=== PATIENT | male | born 1950 | race Caucasian/White ===

== ENCOUNTER → 2024-08-07 10:03 | Outpatient (REF) | payer MEDICARE, OTHER, SELFPAY ==
[2024-08-07 11:16] LABS: % Basophils 1.2 % (0-2); % Eosinophils 7.8 % (0-6); % Immature Granulocytes 0.1 % (0-0.5); % Lymphocytes 29.4 % (20.5-51.1); % Monocytes 8.6 % (1.7-9.3); % Neutrophils 52.9 % (42.2-75.2); Absolute Basophils 0.1 10^3/uL (0-0.2); Absolute Eosinophils 0.6 10^3/uL (0-0.7); Absolute Lymphocytes 2.4 10^3/uL (1.2-3.4); Absolute Monocytes 0.7 10^3/uL (0.1-0.6); Absolute Neutrophils 4.4 10^3/uL (1.4-6.5); Hematocrit 41.2 % (39.0-52.0); Hemoglobin 14.2 g/dL (13.0-18.0); Mean Corp Hgb Conc. 34.5 g/dL (33.0-37.0); Mean Corpuscular Hgb 30.6 pg (27.0-31.0); Mean Corpuscular Volume 88.8 fL (80.0-94.0); Nucleated Red Blood Cells % 0 % (-); Platelet Count 234 10^3/uL (130-400); Red Blood Cell Count 4.64 10^6/uL (4.70-6.10); Red Cell Dist. Width 13.6 % (11.5-14.5); White Blood Cell Count 8.2 10^3/uL (4.8-10.8)
[2024-08-07 11:46] LABS: ALT (SGPT) 37 U/L (0-50); AST (SGOT) 32 U/L (17-59); Albumin 4.8 g/dl (3.5-5.0); Alkaline Phosphatase 107 U/L (38-126); Blood Urea Nitrogen 16 mg/dl (9-20); Calcium 10.3 mg/dl (8.4-10.2); Carbon Dioxide 23 mmol/L (22-30); Chloride 106 mmol/L (98-107); Glucose 132 mg/dl (70-99); Sodium 143 mmol/L (135-145); Total Bilirubin 0.7 mg/dl (0.2-1.3); Total Protein 7.1 g/dl (6.3-8.2); eGFR > 60.00
== END ==
LOC: REG 10:03
PROVIDERS: ATTENDING PHYSICIAN Internal Medicine Cardiovascular Disease
DX: I35.0 Nonrheumatic aortic (valve) stenosis (principal)
CPT/HCPCS: 36415; 80053; 85025

== ENCOUNTER 2024-08-15 08:07 | Day surgery (SDC) | payer MEDICARE, OTHER, SELFPAY ==
[2024-08-15] VITALS (14 sets, daily range): BP systolic 127–168; BP diastolic 47–68; BMI 33.4
--- NOTE | 2024-08-15 09:13 | CONSULT.STRU ---
Consultation
-
Date/Time Consultation Requested: 08/15/2024
Date/Time Consultation Performed: 08/15/2024
Requesting Provider: Fernie Jhaveri MD
Performing Provider: HANSEL Mosquera
Reason for Consultation: / TAVR/SAVR
Patient History
Physicians
Family Physician: Celestine Gonzales DO
Outpatient Last Scourer: Marlon Campbell MD
Primary Last Scourer: Marlon Campbell MD
History of Present Illness
Mr. Damico is a 73 yom that presents with severe aortic stenosis. 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 He does state he
feels tired by the end of the day. Echocardiogram from 06/30/2024 is notable for EF 65-70%, trivial MR, aortic valve P/m 78/51, DAPHNE 0.8, DI 0.25, no AI, pk felix 4.4, trace TR, RVSP 24. His cardiac catheterization shows no CAD, MG 51mmHg. Discussed the
pathophysiology and treatment options of aortic stenosis including SAVR and TAVR. Explained the evaluation process comprising of CT scan, CT surgical consult, dental clearance, and a heart team discussion. TAVR booklet, appointments, prescriptions,
and contact information given to patient. Allowed for and answered questions at bedside.
Past Medical History
Past Medical History: CHRISS (documented in previous medical chart, patient denies CHRISS), Valvular Disease (aortic stenosis) and Other (osteoporosis, SVT, Hyperlipidemia, IgG4, depression)
Past Surgical History
Past Surgical History: Orthopedic (multiple orthopedic surgies) and Other
Dental History
Dr. Ran Stone-UTD-Will fax dental clearance form
Family History
Mother: Cause of (cancer)
Father: Cause of (cancer, heart disease)
Social History
Tobacco: Non-Smoker
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
Allergies
Epinepherine-passes out
Home Medications
amLODIPine Besylate 5 MG Tablet 1 tablet Orally Twice a Day
Atorvastatin Calcium 10 MG Tablet 1 tablet Orally Once a day
Metoprolol Succinate ER 25 MG Tablet Extended Release 24 Hour 1 tablet Orally Twice a Day
STS%
STS %: 1.3
Review of Systems
-
History Source: Patient
General: Reports No Symptoms
HEENT: Reports No Symptoms
Respiratory: Reports No Symptoms
Cardiac: Reports No Symptoms
Abdomen/GI: Reports No Symptoms
: Reports No Symptoms
Musculoskeletal: Reports No Symptoms
Skin: Reports No Symptoms
Neurological: Reports Dizzy (occasional lasting seconds)
Physical Exam
Vital Signs
Temp 98.5 F 08/15/24 08:46
Temp route: Oral 08/15/24 08:46
Pulse 59 08/15/24 08:46
Resp Rate 12 08/15/24 08:46
Blood pressure 168/68 08/15/24 08:46
Blood pressure extremity used: Left upper arm 08/15/24 08:46
Position: Lying 08/15/24 08:46
SaO2 95 08/15/24 08:46
Oxygen Mode of Delivery Room air 08/15/24 08:46
Can the patient verbally communicate their pain? Yes 08/15/24 08:46
Pain scale ratin 08/15/24 08:46
Actual Weight 96.615 kg 08/15/24 07:39
Body Mass Index (BMI) 33.4 08/15/24 07:39
Labs
08/07/2024:
BUN/Creatinine: 16/0.8
GFR>60
HH: 14.2/41.2
Diagnostic Studies
Echocardiogram 06/30/2024:
Aortic Valve
Thickened and deformed aortic valve that exhibits decreased opening. No aortic
insufficiency. Peak aortic valve gradient is 78 mmHg and the mean is 51 mmHg.
The aortic valve area calculated by continuity 0.8 cm2. The dimensionless
velocity index is 0.25. These findings are consistent with severe aortic
stenosis.
CONCLUSIONS
1. Left atrial enlargement.
2. Borderline concentric left ventricular hypertrophy.
3. Severe aortic stenosis.
4. Normal left and right ventricular systolic function.
5. Normal diastolic function.
6. Normal right ventricular systolic pressure
Cardiac Catheterization 08/15/2024:
Exam
General: Well Developed, Well Nourished and No Apparent Distress
HEENT: Normocephalic
Respiratory: Clear
Cardiac: Murmur (II/ ALEYDA)
GI: Soft and Non Tender
Rectal: Deferred by Provider
Skin: Warm
Neuro: Awake, Alert and Oriented
Extremities: Lower Level Edema
Psych: Calm
Assessment / Plan
-
Aortic stenosis
Continue with TAVR/SAVR evaluation
Trend creatinine after contrast
TAVR CT scan (08/31)
CT surgical consult (09/05- )
Frailty testing and KCCQ12 at consult
If TAVR will need to start aspirin
Dental clearance
Heart team discussion
Data Reviewed
-
Academic Support Specialist: Report Reviewed by me and Discussed with Physician
Echo: Report Reviewed by me and Discussed with Physician
Labs: Labs Reviewed by me
Old Records: Reviewed (Dr. Jhaveri and Adrian's OV)
Total Time Spent with Patient (in minutes): 45
[2024-08-15] MEDS: NSS 290 ML IV (09:36)
--- NOTE | 2024-08-15 10:55 | ITS.CL.CATH ---
Game Master - Catheterization
Cardiac Catheterization
Procedure Report:
CARDIAC CATHETERIZATION REPORT
Date of Procedure: 08/15/2024
Referring: Marlon Campbell MD
Indication: Symptomatic severe aortic stenosis
�
HEMODYNAMIC DATA
AO: 126/63
LV: 191/20
There is a mean gradient of 51 mmHg across the aortic valve
�
LEFT VENTRICULOGRAPHY: Not performed
�
CORONARY ANGIOGRAPHY
Dominance: Right
Left Main: Calcified without stenosis
LAD: Mild proximal and mid LAD calcification with mild luminal irregularities but no areas of significant focal stenosis
Circumflex: Trivial luminal irregularities
RCA: Trivial luminal irregularities in a dominant RCA
�
Closure Device: None-the procedure was performed via the right radial artery. The Jamie's test was normal prior to the procedure.
�
Radiation (mGy): 180
DAP (cm2.Gy): 12.2
Fluoroscopy time: 1.2 minutes
�
CONCLUSIONS
1:�Severe aortic stenosis with mean gradient 51 mmHg
2:�No significant CAD
3. Proceed with evaluation for TAVR
�
�
Copy to: Marlon Campbell MD, Celestine Gonzales,
�
Fernie Jhaveri MD, [facility], [facility]
[2024-08-15] MEDS: NSS 1000 IV (11:07)
== END 2024-08-15 14:29 | disposition home or self-care (01) ==
LOC: CATH 08:07
PROVIDERS: ATTENDING PHYSICIAN Internal Medicine Cardiovascular Disease; OTHER PHYSICIAN Internal Medicine Cardiovascular Disease
DX: I35.0 Nonrheumatic aortic (valve) stenosis (principal); R53.83 Other fatigue; I10 Essential (primary) hypertension; E78.5 Hyperlipidemia, unspecified; G47.33 Obstructive sleep apnea (adult) (pediatric); Z79.82 Long term (current) use of aspirin
CPT/HCPCS: 93458; C1894; Q9967

== ENCOUNTER → 2024-08-22 08:58 | Outpatient (REF) | payer MEDICARE, OTHER, SELFPAY ==
[2024-08-22 10:58] LABS: Blood Urea Nitrogen 18 mg/dl (9-20); Calcium 9.5 mg/dl (8.4-10.2); Carbon Dioxide 23 mmol/L (22-30); Chloride 106 mmol/L (98-107); Glucose 126 mg/dl (70-99); Potassium 4.2 mmol/L (3.5-5.1); Sodium 143 mmol/L (135-145); eGFR > 60.00
== END ==
LOC: REG 08:58
PROVIDERS: ATTENDING PHYSICIAN Nurse Practitioner Acute Care
DX: I35.0 Nonrheumatic aortic (valve) stenosis (principal)
CPT/HCPCS: 36415; 80048

== ENCOUNTER → 2024-08-31 09:19 | Outpatient (REF) | payer MEDICARE, OTHER, SELFPAY | LOC: RAD 09:19 | PROVIDERS: ATTENDING PHYSICIAN Nurse Practitioner Acute Care | DX: I35.0 Nonrheumatic aortic (valve) stenosis (principal) | CPT/HCPCS: 74174; 75572; Q9967 ==

== ENCOUNTER 2024-09-21 05:19 | Inpatient (IN) | payer MEDICARE, OTHER, SELFPAY ==
[2024-09-12 12:13] VITALS: BMI 34.9
[2024-09-12 12:52] LABS: % Basophils 0.9 % (0-2); % Eosinophils 9.8 % (0-6); % Immature Granulocytes 0.2 % (0-0.5); % Lymphocytes 29.2 % (20.5-51.1); % Monocytes 9.4 % (1.7-9.3); % Neutrophils 50.5 % (42.2-75.2); Absolute Basophils 0.1 10^3/uL (0-0.2); Absolute Eosinophils 0.8 10^3/uL (0-0.7); Absolute Lymphocytes 2.5 10^3/uL (1.2-3.4); Absolute Monocytes 0.8 10^3/uL (0.1-0.6); Absolute Neutrophils 4.3 10^3/uL (1.4-6.5); Hematocrit 41.6 % (39.0-52.0); Hemoglobin 14.6 g/dL (13.0-18.0); Mean Corp Hgb Conc. 35.1 g/dL (33.0-37.0); Mean Corpuscular Hgb 31.7 pg (27.0-31.0); Mean Corpuscular Volume 90.4 fL (80.0-94.0); Mean Platelet Volume 9.6 fL (7.4-10.4); Nucleated Red Blood Cells % 0 % (-); Platelet Count 229 10^3/uL (130-400); Red Cell Dist. Width 13.4 % (11.5-14.5); White Blood Cell Count 8.6 10^3/uL (4.8-10.8)
[2024-09-12 13:05] LABS: INR 0.99; PT 12.9 Sec (11.4-14.6)
[2024-09-12 13:06] LABS: APTT 40.9 Sec (23.4-35.0)
[2024-09-12 13:07] LABS: ALT (SGPT) 44 U/L (0-50); AST (SGOT) 32 U/L (17-59); Albumin 4.8 g/dl (3.5-5.0); Alkaline Phosphatase 110 U/L (38-126); Blood Urea Nitrogen 20 mg/dl (9-20); Calcium 9.7 mg/dl (8.4-10.2); Carbon Dioxide 24 mmol/L (22-30); Chloride 104 mmol/L (98-107); Direct Bilirubin 0.1 mg/dl (0.0-0.4); Estimated Creatinine Clearance 79 ml/min; Glucose 100 mg/dl (70-99); Potassium 4.1 mmol/L (3.5-5.1); Sodium 141 mmol/L (135-145); Total Bilirubin 0.7 mg/dl (0.2-1.3); Total Protein 7.3 g/dl (6.3-8.2); eGFR > 60.00
[2024-09-12 13:15] LABS: NT-proBNP 143 pg/ml
--- NOTE | 2024-09-12 13:34 | CM ---
Met with and Mrs. Damico in [facility]. He states prior to admission he resides with his spouse in a one story home with three steps to enter. He states prior to admission he was independent with ambulation and adls. He states he does not have
any DME in the home. He states he has a prescription plan with [facility]. His spouse will be home to assist in her care if needed. The discharge plan is to return home with his spouse and a home visit by the Transitional Care Nurse when
medically stable.
We reviewed pre-op and post-op routines. We reviewed the shower instructions. He has the soap, written instructions and the Cardiothoracic Surgery Educational Booklet. We also reviewed restrictions including driving and lifting restrictions. We
discussed a home visit by the Transitional Care Nurse. He is agreeable to a home visit. The plan is for TAVR on 09/21/24.
[2024-09-12 14:19] LABS: Urine Albumin Negative (Neg - Trace); Urine Bilirubin Negative (Negative); Urine Character Clear (Clear); Urine Color Yellow; Urine Glucose 3+ (Negative); Urine Ketone Negative (Negative); Urine Leukocyte Negative (Negative); Urine Nitrite Negative (Negative); Urine Occult Blood Negative (Negative); Urine Specific Gravity 1.015 (<1.030); Urine Urobilinogen Negative (Neg - 1+)
[2024-09-13 10:56] LABS: Glycohemoglobin (HgbA1c) 6.6 % (4.0-5.6)
[2024-09-21] VITALS (18 sets, daily range): BP systolic 109–189; BP diastolic 52–81; BMI 33.5; BMI 34.4
[2024-09-21] MEDS: BACTROBAN 2% OINTMENT 1 APPLIC NASAL (06:02)
--- NOTE | 2024-09-21 06:23 | PTCARENOTE ---
Pt rec'd to unit as direct adm for tavr. Pt clipped, and washed with chg wipes. adm hx taken and recorded. 20 g placed in LAC. Sinus on telemetry no bundle
+ murmur noted on auscultation.
[2024-09-21] MEDS: ANCEF 10 IV (07:19)
--- NOTE | 2024-09-21 08:40 | W.CVOR.SURPR ---
CVOR Surgeon Immed Pre Op
-
I have examined this patient prior to performance of the scheduled procedure.
The patient's condition is unchanged from the time of the dictated/written History and
Physical and the patient is able to undergo the scheduled procedure.
--- NOTE | 2024-09-21 08:41 | W.IMMPOSTOP ---
Surgical Immed Post Op Note
-
[id number]
STRUCTURAL HEART PROCEDURE NOTE: TAVR
Preoperative Dx:
Severe aortic stenosis (P/M:78/51, DAPHNE 0.8)
HTN/HLD
CHRISS
SVT
Postoperative Dx:
Same
Procedures:
1) R RA access w/ tactile & fluoroscopic guidance, micropuncture technique, 6Fr sheath placement
2) R CFV access w/ fluoroscopic guidance, micropuncture technique, 6Fr sheath placement
3) Placement of temporary RV pacing wire w/ threshold testing
4) Placement of pigtail catheter in RCC w/ limited aortography & confirmation of co-planar fluoroscopic angles
5) L CLOTH MENDER access (1st pass) w/ tactile & fluoroscopic guidance, micropuncture technique, 6Fr sheath placement (partial heparinization)
6) Limited angiography of L ileofemoral system
7) Perclose placement x 2 into L CLOTH MENDER
8) Serial dilation of L ileofemoral system w/ subsequent placement of Rodriguez E-sheath; conversion to LMA/GA (systemic heparinization)
9) Wire purchase across stenotic AV (AL-1; soft-tip straight, table J-wire, LVEDP assessment (20mmHg), extra-stiff wire)
10) L TF TAVR w/ placement of 26mm BREANN 3 valve
11) Completion aortography
12) Completion TTE (no sig AI/PVL, mean gradient 7mmHg)
13) Removal of valve delivery system
14) R RA pigtail placement into distal abdominal aorta
15) Removal of Rodriguez E-sheath w/ L CLOTH MENDER mgmt w/ perclose sutures x 2; 8Fr angioseal; manual pressure
16) Completion L ileofemoral angiography
17) Removal of temporary pacing wire
18) Removal of R RA 6Fr sheath w/ placement of RA band
19) Removal of R CFV sheath (protamine administration)
Dye Can Operator:
Dr. Gregorio Jhaveri
Cardiac Surgeon:
Dr. Alexis Edmonds
Anesthesia:
MAC w/ local to B/L groins; conversion to LMA/GA
Cath Data:
Start: 38hrs, Deploy: 819hrs, End: 836hrs
FT: 8.2min, mGy: 286.16, DAP: 33.9659, Contrast: 60mL
Post-TTE: mean gradient 7mmHg, no sig AI/PVL
Implants:
Rodriguez [employer], BREANN 3 valve; 26mm; SN: [id number]
Perclose x 2 - L CLOTH MENDER
8Fr angioseal x 1 - L CLOTH MENDER
Complications:
None
Condition:
Stable/guarded to recovery
--- NOTE | 2024-09-21 08:48 | W.PN.UPDATE ---
Update Note
Progress Note Update
Reviewed Mr. Damico with the heart team in the preTAVR SDM meeting and confirmed a 26 mm S3 via (L) TF access. Patient will resume aspirin post TAVR. LVEDP 20mmHg. #26mm S3 (Serial# [id number]) successfully deployed via left transfemoral access.
Post implant MG 7mmHg.
--- NOTE | 2024-09-21 09:23 | CM ---
Reviewed chart. Mr. Damico is in the operating room today. Prior to admission he resides with his spouse in a one story home with three steps to enter. Prior to admission he was independent with ambulation and adls. He does not have any DME in
the home. He has a prescription plan with [employer]. His spouse will be home to assist in his care if needed. Medical work-up in progress. The discharge plan is to return home with his spouse and a home visit by the Transitional Care NUrse
when medically stable.
[2024-09-21] MEDS: ANCEF IV (09:46)
--- NOTE | 2024-09-21 09:51 | ITS.CL.TAVR ---
Fitness Management Director - TAVR Report
TAVR PRocedure
Procedure Report:
TRANSCATHETER AORTIC VALVE REPLACEMENT REPORT
�
Date: 09/21/2024
Referring physician: Marlon Campbell MD
�
Operators:
production analyst: Fernie Jhaveri MD
Cardiac surgeon: Alexis Edmonds MD
�
Procedure:
Conscious sedation was provided by anesthesia. Using a micropuncture technique, 6F sheaths were placed in the right radial artery and RFV. A transvenous pacemaker was advanced to the RV and excellent thresholds obtained. A pigtail catheter was
advanced to the aortic root where low volume injections were performed to identify an appropriate angle for valve deployment. Access was then obtained in the left femoral artery using a micropuncture technique. A 6Fsheath was placed and angiography
confirmed a DIE MECHANIC puncture site. Heparin 4000 units was administered.��Two perclose sutures were preset using the preclose technique. An 8F sheath was placed in the LFA and an Amplatz extra stiff wire advanced into the thoracic aorta. The ileofemoral
vessels were dilated using the Rodriguez dilator. An Rodriguez E sheath was advanced into the descending thoracic aorta. Additional heparin 4000 units was administered. The valve was crossed using a diagnostic 6F AL1 catheter and a table J wire. An
Amplatz extra stiff wire with a homemade curve was placed in the LV apex. Balloon aortic valvuloplasty was not performed.
An Rodriguez 26�mm Elysia S3 valve was then advanced through the E sheath and prepared for transit around the aortic arch. The valve was carefully advanced across the aortic annulus and deployed during rapid ventricular pacing. Echocardiography and
aortography confirmed an excellent result. The mean gradient was 7 mmHg with trace AI. The valve deployment system was removed. A 125 cm pigtail was advanced from the right radial artery into the distal abdominal aorta for final angiography. The
Rodriguez E sheath was then removed and hemostasis obtained with the two perclose sutures and an 8 Grenadian Angio-Seal. Final angiography demonstrated no evidence of ileofemoral dissection/perforation and good runoff below the common femoral
artery.��The pacemaker was removed and the RFV sheath removed with manual compression. The right radial sheath was removed with an R band for hemostasis
�
Radiation (mGy): 286
DAP (cm2.Gy): 33.9
Fluoroscopy time: 8.2 minutes
�
Conclusions: Successful placement of�26�mm Elysia S3 aortic valve via left transfemoral approach with no acute complications.
�
Copy to: Marlon Campbell MD, Celestine Gonzales, DO
--- NOTE | 2024-09-21 11:21 | PTCARENOTE ---
Assumed care of pt upon transfer from [facility] post TAVR. Pt arrives on unit awake and oriented. VSS, CM shows NSR with first degree AVB, POX 97% on RA. Movement restrictions reviewed with pt. Right radial band intact, attempted to remove air at two
hour point as ordered, but blood immediately noted from band. Bilateral groins CDI. Neuro signs WNL.
[2024-09-21] MEDS: B COMPLEX w/VITAMIN C 1 CAPLET PO (13:35)
[2024-09-21] MEDS: THERAGRAN 2 TABLET PO (13:35)
[2024-09-21] MEDS: ASPIR LOW (ENTERIC COATED) 81 MG PO (13:36)
[2024-09-21] MEDS: LIPITOR 10 MG PO (13:36)
[2024-09-21] MEDS: MAGNESIUM OXIDE 500 MG PO (13:36)
[2024-09-21] MEDS: OSCAL CAL 500 500 MG PO (13:37)
[2024-09-21] MEDS: NORVASC 5 MG PO ×2 (13:39→22:53)
[2024-09-21] MEDS: ANCEF 5 IV (15:03)
[2024-09-21] MEDS: TYLENOL 650 MG PO (23:12)
--- NOTE | 2024-09-22 00:04 | PTCARENOTE ---
Pt s/p TAVR. B/L groin sites remain intact. no active bleeding or hematoma noted. Old drainage noted by day shift RN unchanged at present to left groin. Right radial site also remains dry and intact with a good pulse. No neuro changes noted. Tylenol
given at HS for slight h/a 3 out of 10.
[2024-09-22 04:01] VITALS: BP 152/51
--- NOTE | 2024-09-22 04:16 | W.PN.CT ---
Today's Communication / Plan
-
-pod #1
-doing well, no significant issues overnight
-hypertensive postop - got Norvasc
-nsr 60s overnight. No silvia or pauses
-1st degree AVB postop - resolved, back at baseline
-labs pending
-Echo today
-current meds (ASA, Lipitor, Toprol 25 bid, Norvasc 5 bid)
-encourage IS, OOB
Assessment / Plan
-
- Severe symptomatic - s/p L TF TAVR w/ placement of 26mm BREANN 3 valve on 09/21/24, pod #1
- Post-TTE: mean gradient 7mmHg, no sig AI/PVL
- HTN/HLD
- CHRISS
- SVT
- Autoimmune disorder - IGG4
- L femur surger 1978
- Osteoporosis
- Depression
- Hx tobacco, quit 1999
Discussed patient care with: Nursing and Care Team
Subjective
Procedure
- s/p L TF TAVR w/ placement of 26mm BREANN 3 valve on 09/21/24
-
Date of Service: September 22, 2024
Objective Data
-
PT 12.9 Sec (11.4-14.6) 09/12/24 12:26
INR 0.99 09/12/24 12:26
APTT 40.9 Sec (23.4-35.0) H 09/12/24 12:26
Vital Signs
Vital Signs
Temp Pulse Resp BP Pulse Ox
98.4 F 74 20 169/62 95
09/22/24 04:15 09/21/24 22:00 09/22/24 04:15 09/21/24 19:19 09/22/24 04:15
CT Intake/Output/Weight
09/21/24 09/21/24 09/22/24
06:59 18:59 06:59
Intake Total 1000 / 1000
Output Total 650 / 650
Balance 350 / 350
SaO2: 95
Physical Exam
-
General: Awake and AOx3
Cardiovascular: Regular rate & rhythm and Murmur (6 systolic @ lsb)
Respiratory: Rales (at L base. No wheeze b/l)
Incision: Other (groins are cdi, soft, nontender, no hematoma b/l)
Extremities: Edema +1 (1+ DPs b/l)
Abdomen: soft, nontender, nondistended, + bowel sounds
Data Reviewed
-
Lab Results: Results Reviewed
Medications: Active Meds Reviewed
Chest X-Ray: Report Reviewed and Image Reviewed
ECG: Report Reviewed and Image Reviewed
[2024-09-22 04:27] LABS: Hematocrit 39.3 % (39.0-52.0); Hemoglobin 13.7 g/dL (13.0-18.0); Mean Corp Hgb Conc. 34.9 g/dL (33.0-37.0); Mean Corpuscular Hgb 30.8 pg (27.0-31.0); Mean Corpuscular Volume 88.3 fL (80.0-94.0); Platelet Count 181 10^3/uL (130-400); Red Blood Cell Count 4.45 10^6/uL (4.70-6.10); Red Cell Dist. Width 13.6 % (11.5-14.5); White Blood Cell Count 10.2 10^3/uL (4.8-10.8)
[2024-09-22 05:39] LABS: Hepatitis C Antibody Negative (Negative)
[2024-09-22 05:46] LABS: Blood Urea Nitrogen 16 mg/dl (9-20); Calcium 8.8 mg/dl (8.4-10.2); Carbon Dioxide 20 mmol/L (22-30); Chloride 108 mmol/L (98-107); Estimated Creatinine Clearance 88 ml/min; Glucose 120 mg/dl (70-99); Potassium 4.2 mmol/L (3.5-5.1); Sodium 142 mmol/L (135-145); eGFR > 60.00
[2024-09-22 06:00] VITALS: BMI 34.2
[2024-09-22] MEDS: THERAGRAN 2 TABLET PO (08:52)
[2024-09-22] MEDS: OSCAL CAL 500 500 MG PO (08:52)
[2024-09-22] MEDS: MAGNESIUM OXIDE 500 MG PO (08:52)
[2024-09-22 08:53] VITALS: BP 168/68
[2024-09-22] MEDS: LIPITOR 10 MG PO (08:53)
[2024-09-22] MEDS: ASPIR LOW (ENTERIC COATED) 81 MG PO (08:53)
[2024-09-22] MEDS: NORVASC 5 MG PO (08:53)
[2024-09-22] MEDS: B COMPLEX w/VITAMIN C 1 CAPLET PO (08:53)
[2024-09-22] MEDS: TOPROL XL 25 MG PO (09:13)
--- NOTE | 2024-09-22 10:20 | CM ---
Reviewed chart. Met with and Mrs. Damico to review discharge plans. He states he is feeling great and maybe able to go home soon. He states he has been ambulating in the room. We reviewed a home visit by the Transitional Care Nurse. He is
agreeable to a home visit. Prior to admission he resides with his spouse in a one story home with three steps to enter. Prior to admission he was independent with ambulation and adls. He does not have any DME in the home. He states he has a
prescription plan with [employer]. His spouse will be home to assist in his care if needed. Medical work-up in progress. The discharge plan is to return home with his spouse and a home visit by the Transitional Care Nurse when medically
stable.
--- NOTE | 2024-09-22 10:42 | PTCARENOTE ---
pt continues to be sr w/ first degree. pt denies pain at groin/wrist sites. bilateral groins and right radial cdi. pt offers no complaints at this time. pt educated on plan of care and pt verbalized understanding. pt ambulating to br and tolerating
well. at bedside w/ pt. call nascimento within reach.
--- NOTE | 2024-09-22 11:35 | W.DCSUMMARY ---
Discharge Summary
Discharge Data
Date of Admission: 09/21/24
Date of Discharge: 09/22/24
-
Pending Results: No
Hospital Course
Patient is a 74-year-old man admitted to [facility] on 09/21/2024 for a transfemoral TAVR. His past medical history was significant for hypertension, hyperlipidemia, osteoporosis, depression, and previous smoking history. He had previously
underwent cardiac workup and found to have severe aortic stenosis. He was seen in consultation by cardiothoracic surgery and deemed to be a good candidate for transfemoral TAVR. Patient was admitted the morning of 09/21/2024 and later that morning
was brought to the cardiac Wireline Field Operator where he underwent a left transfemoral TAVR with a 26 mm BREANN 3 valve. LVEDP measured 20 mmHg. Echo performed at time of procedure showed a mean gradient of 7 mmHg. He tolerated the procedure well and was
returned to the IVU in hemodynamically stable condition. His first night in the IVU was uneventful. The following morning his x-ray was essentially clear. His EKG showed sinus rhythm. Echo was performed which showed an ejection fraction of 75%.
No aortic insufficiency. Peak and mean gradient on postop day #1 was measured at 25/13.
He was able to ambulate without difficulty and on physical exams his groins were without hematoma or bleeding. Distal pulses intact bilaterally. At time of discharge his vital signs were as follows
Afebrile, blood pressure 160/68, pulse 80 regular, room air O2 sat 97%.
He was given a full set of discharge instructions along with follow-up appointments with his manager flight and PCP.
Discharge labs were as follows hemoglobin 13.7, white blood cell count 10.2, hematocrit 39.3, platelets 181. BUN was 16, creatinine 0.8 and sodium 142.
He was given a full set of discharge instructions and instructed to call our office with any postoperative concerns.
Discharge Plan
-
Patient Disposition: Home (Routine Discharge)
Discharge Diagnosis/Procedures: TF TAVR/aortic stenosis
Condition: Good
Diet: Low Fat, Low Cholesterol and 2 Gram Sodium
Activity: As tolerated
Driving Restrictions: No driving for 1 week
Bathing Restrictions: OK to Shower
Others Tests: 30-day follow up echocardiogram: 10/24/2024 @ 1:[address] Campbell's office
Other Services: Cardiac Rehab
Wound Care: NO lotions, powders or creams to puncture sites. Call your doctor if you develop increased pain,reddness,swelling,or drainage in your groin area.
Specialty Instructions: Weigh Daily- Call MD for wt gain/loss 3 lbs overnight/5 lbs in 1 week
Referrals:
Celestine Gonzales DO [Other]
CT Transitional Care Nurse [Outside]
Marlon Campbell MD [Active] - 10/25/24 9:40 am
Additional Discharge Medication Instructions: resume all medications you were taking at home
Prescriptions:
New
acetaminophen 325 mg Tablet
650 mg PO Q4HPRN PRN (Reason: AREVALO, mild pain, or fever >101F) Qty: 0 0RF
Continued
multivitamin Tablet
2 tab PO DAILY
magnesium 500 mg Tablet
500 mg PO DAILY
atorvastatin 10 mg Tablet
10 mg PO DAILY
calcium 500 mg Tablet
500 mg PO DAILY
amlodipine 5 mg Tablet
5 mg PO BID
aspirin 81 mg Tablet
81 mg PO DAILY
metoprolol succinate 25 mg Tablet Extended Release 24 Hr
25 mg PO BID
B-complex with vitamin C Capsule
1 cap PO DAILY
omega 3-lsm-ipv-fish oil [Fish Oil] 1,000 (120-180) mg Capsule
1 cap PO DAILY
Patient Comments:
stopped last Dr visit with Dr murphy at least 1 1/2 weeks ago
Discharge Orders:
Discharge Patient (As Directed); Ordered 09/22/24
Ordered By: Vazquez Irene
Care Plan Goals
Care Plan Goals:
Problem: Readiness for enhanced knowledge related to diagnosis and treatment plan
Goal: Understand your diagnosis and treatment plan needs, including medications if applicable.
Instructions: Know your diagnosis, underlying causes and treatment plan options, including medications if applicable. Consult with your health care team to learn about your diagnosis and treatment plan, including medications if applicable.
Discharge Date and Time
Print Language: TONGAN
[2024-09-22 12:20] VITALS: BP 157/64; BP_SYST 90; PULSE 176; O2SAT 91; O2SAT 96
[2024-09-22 13:26] LABS: ACT-LR - POC 350 Seconds (116-155)
[2024-09-22 15:34] LABS: ACT-LR - POC > 397 Seconds (116-155)
== END 2024-09-22 12:39 | disposition home or self-care (01) | DRG 267 ==
LOC: IVU 05:19
PROVIDERS: Internal Medicine Cardiovascular Disease; Physician Assistant Medical; ADMITTING PHYSICIAN Thoracic Surgery (Cardiothoracic Vascular Surgery); REFERRING PHYSICIAN Internal Medicine Cardiovascular Disease
PROC: 02RF38Z Replacement of Aortic Valve with Zooplastic Tissue, Percutaneous Approach (ICD-10-PCS; 2024-09-21)
DX: I35.0 Nonrheumatic aortic (valve) stenosis (principal); Z00.6 Encounter for examination for normal comparison and control in clinical research program; I47.10 Supraventricular tachycardia, unspecified; I10 Essential (primary) hypertension; E78.5 Hyperlipidemia, unspecified; F32.A Depression, unspecified; M81.0 Age-related osteoporosis without current pathological fracture; Z87.891 Personal history of nicotine dependence; G47.33 Obstructive sleep apnea (adult) (pediatric)
CPT/HCPCS: 93308; 33361; 36415; 71045; 71046; 80048; 80076; 81003; 83036; 83880; 85025; 85027; 85347; 85610; 85730; 86803; 86850; 86900; 86901; 87070; 93005; 93306; 93321; 93325; C1760; C1769; C1894; Q9967

== ENCOUNTER 2024-10-18 11:20 | Outpatient (RCR) | payer MEDICARE, OTHER, SELFPAY | END 2024-10-18 23:59 | disposition home or self-care (01) | LOC: CRHB 11:20 | PROVIDERS: ATTENDING PHYSICIAN Internal Medicine Cardiovascular Disease | DX: Z95.4 Presence of other heart-valve replacement (principal) | CPT/HCPCS: G0422; G0423 ==

== ENCOUNTER 2024-11-16 08:49 | Outpatient (RCR) | payer MEDICARE, OTHER, SELFPAY ==
[2024-10-24 12:11] LABS: HDL Cholesterol 30 mg/dl; LDL Cholesterol, Calculated 72 mg/dl; Total Cholesterol 146 mg/dl (50-199); Triglyceride 220 mg/dl (10-149); Very Low Density Lipoprotein 44 mg/dl (0-30)
== END 2024-11-16 23:59 | disposition home or self-care (01) ==
LOC: CRHB 08:49
PROVIDERS: ATTENDING PHYSICIAN Internal Medicine Cardiovascular Disease
DX: Z95.4 Presence of other heart-valve replacement (principal)
CPT/HCPCS: 36415; 80061; G0422; G0423

== ENCOUNTER 2024-12-21 09:35 | Outpatient (RCR) | payer MEDICARE, OTHER, SELFPAY | END 2024-12-21 23:59 | disposition home or self-care (01) | LOC: CRHB 09:35 | PROVIDERS: ATTENDING PHYSICIAN Internal Medicine Cardiovascular Disease | DX: Z95.4 Presence of other heart-valve replacement (principal) | CPT/HCPCS: G0422; G0423 ==

== ENCOUNTER 2025-01-18 09:57 | Outpatient (RCR) | payer MEDICARE, OTHER, SELFPAY | END 2025-01-18 23:59 | disposition home or self-care (01) | LOC: CRHB 09:57 | PROVIDERS: ATTENDING PHYSICIAN Internal Medicine Cardiovascular Disease | DX: Z95.4 Presence of other heart-valve replacement (principal) | CPT/HCPCS: 93797; 93798; G0422; G0423 ==

== ENCOUNTER → 2025-01-30 11:28 | Outpatient (REF) | payer MEDICARE, OTHER, SELFPAY | LOC: DHSLP 11:28 | PROVIDERS: ATTENDING PHYSICIAN Internal Medicine Cardiovascular Disease | DX: G47.33 Obstructive sleep apnea (adult) (pediatric) (principal) | CPT/HCPCS: 95800 ==

== ENCOUNTER 2025-02-15 10:40 | Outpatient (RCR) | payer MEDICARE, OTHER, SELFPAY | END 2025-02-15 13:36 | disposition home or self-care (01) | LOC: CRHB 10:40 | PROVIDERS: ATTENDING PHYSICIAN Internal Medicine Cardiovascular Disease | DX: Z95.4 Presence of other heart-valve replacement (principal) | CPT/HCPCS: G0422; G0423 ==

== ENCOUNTER → 2025-05-31 16:14 | Outpatient (REF) | payer MEDICARE, OTHER, SELFPAY ==
[2025-05-31 13:33] LABS: PSA, Total - Diagnostic 4.16 ng/ml (0.0-4.0)
== END ==
LOC: OIDL 16:14
PROVIDERS: ATTENDING PHYSICIAN Internal Medicine Hematology & Oncology
DX: D68.9 Coagulation defect, unspecified (principal); C90.00 Multiple myeloma not having achieved remission; D72.10 Eosinophilia, unspecified; R59.0 Localized enlarged lymph nodes; J32.9 Chronic sinusitis, unspecified; D51.8 Other vitamin B12 deficiency anemias; D89.0 Polyclonal hypergammaglobulinemia; D89.84 IgG4-related disease; C61 Malignant neoplasm of prostate
CPT/HCPCS: 84153

== ENCOUNTER → 2025-06-28 16:24 | Outpatient (REF) | payer MEDICARE, OTHER, SELFPAY ==
[2025-06-28 12:05] LABS: Hematocrit 36.1 % (39.0-52.0); Hemoglobin 12.6 g/dL (13.0-18.0); Mean Corp Hgb Conc. 34.9 g/dL (33.0-37.0); Mean Corpuscular Volume 90.5 fL (80.0-94.0); Platelet Count 196 10^3/uL (130-400); Red Cell Dist. Width 13.0 % (11.5-14.5)
[2025-06-28 12:43] LABS: Blood Urea Nitrogen 40 mg/dl (9-20); Calcium 9.7 mg/dl (8.4-10.2); Carbon Dioxide 23 mmol/L (22-30); Chloride 108 mmol/L (98-107); Glucose 121 mg/dl (70-99); Potassium 4.1 mmol/L (3.5-5.1); Sodium 141 mmol/L (135-145); eGFR > 60.00
[2025-06-28 13:10] LABS: PSA, Total - Diagnostic 4.31 ng/ml (0.0-4.0)
== END ==
LOC: OIDL 16:24
PROVIDERS: ATTENDING PHYSICIAN Nurse Practitioner Adult Health
DX: C90.00 Multiple myeloma not having achieved remission (principal); D72.10 Eosinophilia, unspecified; D68.9 Coagulation defect, unspecified; R59.0 Localized enlarged lymph nodes; J32.9 Chronic sinusitis, unspecified; D51.8 Other vitamin B12 deficiency anemias; D89.0 Polyclonal hypergammaglobulinemia; D89.84 IgG4-related disease; C61 Malignant neoplasm of prostate
CPT/HCPCS: 80048; 84153; 85025

== ENCOUNTER → 2025-08-14 09:43 | Outpatient (REF) | payer MEDICARE, OTHER, SELFPAY ==
[2025-08-14 10:52] LABS: Hematocrit 34.2 % (39.0-52.0); Hemoglobin 11.8 g/dL (13.0-18.0); Mean Corp Hgb Conc. 34.5 g/dL (33.0-37.0); Mean Corpuscular Volume 92.7 fL (80.0-94.0); Nucleated Red Blood Cells % 0 % (-); Platelet Count 199 10^3/uL (130-400); Red Cell Dist. Width 13.4 % (11.5-14.5)
[2025-08-14 11:36] LABS: Blood Urea Nitrogen 29 mg/dl (9-20); Calcium 10.0 mg/dl (8.4-10.2); Carbon Dioxide 26 mmol/L (22-30); Chloride 104 mmol/L (98-107); Glucose 124 mg/dl (70-99); Potassium 3.9 mmol/L (3.5-5.1); Sodium 138 mmol/L (135-145); eGFR > 60.00
[2025-08-14 11:55] LABS: PSA, Total - Diagnostic 1.84 ng/ml (0.0-4.0)
== END ==
LOC: REG 09:43
PROVIDERS: ATTENDING PHYSICIAN Nurse Practitioner Adult Health; FAMILY PHYSICIAN Internal Medicine
DX: D68.9 Coagulation defect, unspecified (principal); C90.00 Multiple myeloma not having achieved remission; D72.10 Eosinophilia, unspecified; R59.0 Localized enlarged lymph nodes; J32.9 Chronic sinusitis, unspecified; D51.8 Other vitamin B12 deficiency anemias; D89.0 Polyclonal hypergammaglobulinemia; D89.84 IgG4-related disease; C61 Malignant neoplasm of prostate
CPT/HCPCS: 36415; 80048; 84153; 85025

== ENCOUNTER → 2025-10-16 06:47 | Outpatient (REF) | payer MEDICARE, OTHER, SELFPAY ==
[2025-10-16 07:58] LABS: Hematocrit 33.0 % (39.0-52.0); Hemoglobin 11.8 g/dL (13.0-18.0); Mean Corp Hgb Conc. 35.8 g/dL (33.0-37.0); Mean Corpuscular Volume 92.7 fL (80.0-94.0); Nucleated Red Blood Cells % 0 % (-); Platelet Count 209 10^3/uL (130-400); Red Cell Dist. Width 12.9 % (11.5-14.5)
[2025-10-16 08:42] LABS: Blood Urea Nitrogen 30 mg/dl (9-20); Calcium 9.3 mg/dl (8.4-10.2); Carbon Dioxide 26 mmol/L (22-30); Chloride 104 mmol/L (98-107); Glucose 163 mg/dl (70-99); Potassium 3.6 mmol/L (3.5-5.1); Sodium 135 mmol/L (135-145); eGFR > 60.00
[2025-10-16 09:07] LABS: PSA, Total - Diagnostic 0.66 ng/ml (0.0-4.0)
== END ==
LOC: REG 06:47
PROVIDERS: ATTENDING PHYSICIAN Nurse Practitioner Adult Health; FAMILY PHYSICIAN Internal Medicine
DX: D68.9 Coagulation defect, unspecified (principal); C90.00 Multiple myeloma not having achieved remission; D72.10 Eosinophilia, unspecified; R59.0 Localized enlarged lymph nodes; J32.9 Chronic sinusitis, unspecified; D51.8 Other vitamin B12 deficiency anemias; D89.0 Polyclonal hypergammaglobulinemia; D89.84 IgG4-related disease; C61 Malignant neoplasm of prostate
CPT/HCPCS: 36415; 80048; 84153; 85025

== ENCOUNTER → 2025-11-07 06:39 | Outpatient (REF) | payer MEDICARE, OTHER, SELFPAY ==
[2025-11-07 07:54] LABS: Hematocrit 36.1 % (39.0-52.0); Hemoglobin 12.5 g/dL (13.0-18.0); Mean Corp Hgb Conc. 34.6 g/dL (33.0-37.0); Mean Corpuscular Volume 92.3 fL (80.0-94.0); Nucleated Red Blood Cells % 0 % (-); Platelet Count 210 10^3/uL (130-400); Red Cell Dist. Width 13.1 % (11.5-14.5)
[2025-11-07 08:55] LABS: ALT (SGPT) 53 U/L (0-50); AST (SGOT) 40 U/L (17-59); Albumin 4.8 g/dl (3.5-5.0); Alkaline Phosphatase 94 U/L (38-126); Blood Urea Nitrogen 27 mg/dl (9-20); Calcium 9.5 mg/dl (8.4-10.2); Carbon Dioxide 24 mmol/L (22-30); Chloride 104 mmol/L (98-107); Glucose 147 mg/dl (70-99); HDL Cholesterol 32 mg/dl; LDL Cholesterol, Calculated 68 mg/dl; Potassium 3.6 mmol/L (3.5-5.1); Sodium 138 mmol/L (135-145); Total Protein 7.3 g/dl (6.3-8.2); Very Low Density Lipoprotein 39 mg/dl (0-30); eGFR > 60.00
== END ==
LOC: REG 06:39
PROVIDERS: ATTENDING PHYSICIAN Internal Medicine Cardiovascular Disease; FAMILY PHYSICIAN Internal Medicine
DX: I35.0 Nonrheumatic aortic (valve) stenosis (principal); E78.5 Hyperlipidemia, unspecified
CPT/HCPCS: 36415; 80053; 80061; 85025